=== PATIENT | female | born 1965 | race Caucasian/White ===

== ENCOUNTER → 2020-04-15 | Outpatient (CLI) | payer OTHER ==
[~2020-04-15] MED LIST: AMIT10TA PO; AMLO2.5T5 PO; AZAT50TA20 PO; CELE200C PO; CYCL1DRO OU; HYDR-2145 PO; INFL100V IV; METF500T16 PO; METO50TA29 PO; OMEG1CAP50 PO; OMEP20CA16 PO; PRAV20TA2 PO; SERT100T PO; TRAM50TA PO
== END | disposition home or self-care (01) ==
LOC: LAB 08:10
PROVIDERS: ATTEND Nurse Anesthetist, Certified Registered
DX: Z01.812 Encounter for preprocedural laboratory examination (principal); Z12.11 Encounter for screening for malignant neoplasm of colon; Z20.828 Contact with and (suspected) exposure to other viral communicable diseases
CPT/HCPCS: U0003-CS

== ENCOUNTER → 2020-04-18 | Day surgery (SDC) | payer OTHER ==
[~2020-04-18] MED LIST changes: +IPRATRPIUM/ALBUTEROL 0.5/2.5MG 3 ML NEBU. NEB PRN; +IV RINGERS SOLUTION,LACTATED 1,000 ML IV SCH; +MIDAZOLAM HCL PF 2 MG/2 ML VIAL. IV ONE; +ONDANSETRON PF 4 MG/2 ML VIAL. IV PRN; +PROPOFOL 10,000 MCG/ML (20ML) VIAL IV ONE
[2020-04-18 08:28] VITALS: BP 149/90
--- NOTE | 2020-04-19 15:08 | PATHOLOGY ---
[facility] Accession Number: [id number] . 01 Material submitted: . PART A: cecum - CECAL POLYP X3 PART B: colon - TRANSVERSE POLYP. Modifiers: transverse . 02 Diagnosis: A. Colon biopsies, cecal polyp x 3: - Segments of colonic mucosa focally containing mucosal-associated lymphoid aggregates, consistent with prominent mucosal folds. . B. Colon biopsies, transverse colon polyp: - Tubular adenoma. ([facility] 04/19/2020) [facility] 04/19/2020 1040 Local . 02 Comment: There is no high-grade dysplasia or evidence of malignancy. ([facility] 04/19/2020) . 02 Electronically signed: . Jose Sprague MD, Pathologist NPI- [id number] . 01 Gross description: . A. The specimen is received in formalin, labeled "Lakisha Andrew, cecum polyp". Received are two segments of pale daniel soft tissue ranging in size from 0.6 to 0.7 cm in maximum dimensions. The specimen is submitted entirely in cassette A1. . B. The specimen is received in formalin, labeled "Lakisha Andrew, transverse polyp". Received are four segments of pale daniel soft tissue ranging in size from 0.3 to 0.4 cm in maximum dimensions. The specimen is submitted entirely in cassette B1. ([facility]; 04/18/2020) [facility]AC 04/18/2020 1820 Local . 02 Pathologist provided ICD-10: D12.0 . 02 CPT . 337225, [id number] Specimen Comment: A courtesy copy of this report has been sent to [phone] Specimen Comment: [id number] Specimen Comment: Report sent to / DR FRANCISCO Performed at: 01 [facility] [address], [place], [place] [id number] MD Bhupendra Pantoja MD Phone: [phone] Performed at: 02 [facility] [address], [place] [id number] MD Jose Sprague MD Phone: [phone]
== END | disposition home or self-care (01) ==
LOC: SURG 06:32
PROVIDERS: ATTEND Internal Medicine Gastroenterology
DX: Z12.11 Encounter for screening for malignant neoplasm of colon (principal); D12.3 Benign neoplasm of transverse colon; K57.30 Diverticulosis of large intestine without perforation or abscess without bleeding; Z79.899 Other long term (current) drug therapy
CPT/HCPCS: 45380; 88305; J2704; J7120

== ENCOUNTER → 2021-01-24 | Outpatient (CLI) | payer OTHER ==
[2020-04-18 08:28] VITALS: BP 149/90
[~2021-01-24] MED LIST changes: -IPRATRPIUM/ALBUTEROL 0.5/2.5MG 3 ML NEBU. NEB PRN; -IV RINGERS SOLUTION,LACTATED 1,000 ML IV SCH; -MIDAZOLAM HCL PF 2 MG/2 ML VIAL. IV ONE; -ONDANSETRON PF 4 MG/2 ML VIAL. IV PRN; -PROPOFOL 10,000 MCG/ML (20ML) VIAL IV ONE
--- NOTE | 2021-01-24 12:02 | RAD ---
EXAM: Chest, 2 views. HISTORY: Inflammatory lung disease. COMPARISON: None. FINDINGS: 2 views of the chest are obtained. There is right infrahilar and basilar atelectasis or ple ural parenchymal scarring with a suspected trace pleural effusion or basilar pleural thickening. The heart is normal in size. There is no pneumothorax. IMPRESSION: Right infrahilar and basilar atelectasis or pleural parenchymal scarring with trace pleur al effusion or pleural thickening. Electronically signed by: Lashawn Gonzalez MD (01/24/2021 12:00 PM) [id number]
== END ==
LOC: RAD 11:31
PROVIDERS: ATTEND Family Medicine
DX: J98.4 Other disorders of lung (principal)
CPT/HCPCS: 71046

== ENCOUNTER 2021-08-04 11:18 | Inpatient (IN) | payer OTHER ==
[~2021-08-04] VITALS: Ht 166.4 cm; Wt 118.6 kg
--- NOTE | 2021-08-04 12:28 | PHYS DOC ---
Past History Additional Past Medical Histor: RA, DM, Lung disease (SCOT GATICA APRN) Past Surgical History: Other (SCOT GATICA APRN) General Adult EDM: Chief Complaint: SHORTNESS OF BREATH HPI: HPI: Patient is a 55-year-old female who presents to the emergency department today for a productive cough and shortness of breath that started yesterday. She also reports decreased appetite, headache and chest wall pain with coughing. Patient has a history of RA and interstitial lung disease. Patient reports that her daughter has been sick and had a negative COVID test. Patient denies any fevers, nausea, vomiting, travel. (SCOT GATICA APRN) Review of Systems: Review of Systems: Constitutional: See HPI Respiratory: See HPI Cardiovascular: See HPI GI: See HPI Neurologic: See HPI (SCOT GATICA APRN) Allergies: Allergies: Allergies Coded Allergies Type Severity Reaction Last Updated Verified No Known Drug Allergies 04/12/20 No (SCOT GATICA APRN) Physical Exam: PE: Constitutional: Well developed, well nourished, no acute distress, non-toxic appearance. [] HENT: Normocephalic, atraumatic, bilateral external ears normal, oropharynx moist, no oral exudates, nose normal. [] Eyes: PERRL, EOMI, conjunctiva normal, no discharge. [] Neck: Normal range of motion, there Cardiovascular:Heart rate regular rhythm, no murmur, chest wall pain reproducible with coughing [] Lungs & Thorax: Patient has diminished lung sounds on right lower lobe Abdomen: Bowel sounds normal, soft, no tenderness, no masses, no pulsatile masses. [] Skin: Warm, dry, no erythema, no rash. [] Back: Normal range of motion Extremities: No tenderness, no cyanosis, no clubbing, ROM intact, no edema. [] Neurologic: Alert and oriented X 3, normal motor function, normal sensory function, no focal deficits noted. [] Psychologic: Affect normal, judgement normal, mood normal. [] (SCOT GATICA APRN) Current Patient Data: Labs: Laboratory Tests Test 08/04/21 13:04 Influenza Type A (Rapid) Negative Influenza Type B (Rapid) Negative SARS-CoV-2 Antigen (Rapid) Positive Current Medications Medications (Trade) Dose Ordered Sig/Lana Route PRN Reason Start Time Stop Time Status Last Admin Dose Admin Sodium Chloride 1,000 ml @ 100 mls/hr Q10H IV 08/04/21 14:30 08/05/21 14:29 UNV Vital Signs: Vital Signs Date Time Temp Pulse Resp B/P (MAP) Pulse Ox O2 Delivery O2 Flow Rate FiO2 08/04/21 11:35 97.8 107 16 149/90 (109) 94 Room Air (SCOT GATICA APRN) EKG: EKG: [] (SCOT GATICA APRN) Radiology/Procedures: Radiology/Procedures: [] EXAM: Chest, single view. HISTORY: Cough. Shortness of air. COMPARISON: 01/24/2021 FINDINGS: A frontal view of the chest is obtained. There has been slight interval increase in a small right pleural effusion and right lower lobe infiltrate. This is superimposed on suspected basilar pleural thickening. There is stable left basilar atelectasis or infiltrate. The heart is normal in size. There is no pneumothorax. IMPRESSION: 1. Slight increased small right pleural effusion and right lower lobe infiltrate. Superimposed on suspected basilar pleural thickening/pleural parenchymal scarring. 2. Stable left basilar atelectasis or infiltrate. Electronically signed by: Lashawn Owen MD (08/04/2021 12:37 PM) [id number] DICTATED AND SIGNED BY: LASHAWN OWEN MD DATE: 08/04/21 1236 CC: ANNE FRANCISCO MD; SCOT GATICA APRN ~MTH0 0 (SCOT GATICA APRN) Heart Score: C/O Chest Pain: No Risk Factors: Risk Factors: DM, Current or recent (<one month) smoker, HTN, HLP, family history of CAD, obesity. Risk Scores: Score 0 - 3: 2.5% MACE over next 6 weeks - Discharge Home Score 4 - 6: 20.3% MACE over next 6 weeks - Admit for Clinical Observation Score 7 - 10: 72.7% MACE over next 6 weeks - Early Invasive Strategies (SCOT GATICA APRN) Course & Med Decision Making: Course & Med Decision Making Pertinent Labs and Imaging studies reviewed. (See chart for details) [] Patient presents to the emergency department for productive cough, shortness of breath, headache and decreased appetite. Patient will be tested for influenza and COVID. She will also receive a chest x-ray. Patient was positive for COVID-19, negative influenza test. Chest x-ray shows pneumonia. Patient is requiring supplemental oxygen at rest and with exertion. She will be admitted for COVID pneumonia and hypoxia. I discussed patient's case with Dr. Nielsen who agreed to admit the patient under his services. He advised order supplemental oxygen, gram of Rocephin, 500 mg of Zithromax, Decadron. Discussed these findings with patient as well as care plan she is agreeable at this time. ER bridge orders placed at this time 1423. (SCOT GATICA APRN) Dragon Disclaimer: Dragon Disclaimer: This electronic medical record was generated, in whole or in part, using a voice recognition dictation system. (SCOT GATICA APRN) Attending Co-Sign The patient was seen and interviewed as well as examined at the bedside. The chart was reviewed. The case was discussed. Agree with the plan of care. (JUAN MANUEL PORTER DO) Departure Departure: Impression: Primary Impression: Pneumonia due to COVID-19 virus Additional Impression: Hypoxia Disposition: ADMITTED INPATIENT Admitting Physician: Surya Nielsen (SCOT GATICA APRN) Condition: GOOD Referrals: ANNE FRANCISCO MD (PCP) SCOT GATICA APRN Aug 04, 2021 12:28 JUAN MANUEL PORTER DO Aug 05, 2021 06:38
--- NOTE | 2021-08-04 12:39 | RAD ---
EXAM: Chest, single view. HISTORY: Cough. Shortness of air. COMPARISON: 01/24/2021 FINDINGS: A frontal view of the chest is obtained. There has been slight interval increase in a small right pleural effusion and right lower lobe infiltrate. This is superimposed on suspected basilar pl eural thickening. There is stable left basilar atelectasis or infiltrate. The heart is normal in size . There is no pneumothorax. IMPRESSION: 1. Slight increased small right pleural effusion and right lower lobe infiltrate. Superimposed on anil pected basilar pleural thickening/pleural parenchymal scarring. 2. Stable left basilar atelectasis or infiltrate. Electronically signed by: Lashawn Gonzalez MD (08/04/2021 12:37 PM) [id number]
[2021-08-04 13:37] LABS: INFLUENZA A PATIENT NEGATIVE (NEGATIVE); INFLUENZA B PATIENT NEGATIVE (NEGATIVE)
[2021-08-04] MEDS ORDERED: DEXAMETHASONE SOD PHOS 10 MG/ML VIAL. IVP ONE (14:30)
[2021-08-04] MEDS ORDERED: AZITHROMYCIN 500 MG in IV NORMAL SALINE 250ML 250 ML IV ONE (14:30)
[2021-08-04] MEDS ORDERED: AZITHROMYCIN 500 MG in IV NORMAL SALINE 250ML 250 ML IV SCH (15:00)
[2021-08-04] MEDS ORDERED: IV NORMAL SALINE 50ML 50 ML ONE (15:13)
[2021-08-04] MEDS ORDERED: cefTRIAXone SODIUM 1 GM VIAL ONE (15:13)
[2021-08-04] MEDS: IV NORMAL SALINE 1,000ML 1,000 ML IV SCH (15:28)
[2021-08-04] MEDS ORDERED: IV NORMAL SALINE 250ML 250 ML ONE (16:49)
[2021-08-04] MEDS ORDERED: AZITHROMYCIN 500 MG VIAL. IV ONE (16:49)
[2021-08-04 19:00] VITALS: BP 133/83
[2021-08-04 23:00] VITALS: BP 113/73
[2021-08-05] MEDS: IV NORMAL SALINE 1,000ML 1,000 ML IV SCH (00:30)
[2021-08-05 05:55] VITALS: BP 135/85
[2021-08-05 06:12] LABS: BASO % 0 % (0-3); EOS % 0 % (0-3); HEMATOCRIT 31.4 % (36.0-47.0); HEMOGLOBIN 9.9 g/dL (12.0-15.5); LYMPH # 0.4 x10^3/uL (1.0-4.8); LYMPH % 3 % (24-48); MEAN CORPUSCULAR HEMOGLOBIN 28 pg (25-35); MEAN CORPUSCULAR HGB CONC 32 g/dL (31-37); MEAN CORPUSCULAR VOLUME 89 fL (79-100); MONO # 0.5 x10^3/uL (0.0-1.1); MONO % 3 % (0-9); NEUT # 12.4 x10^3uL (1.8-7.7); NEUT % 93 % (31-73); PLATELET COUNT 382 x10^3/uL (140-400); RED BLOOD COUNT 3.54 x10^6/uL (3.50-5.40); RED CELL DISTRIBUTION WIDTH 17.3 % (11.5-14.5); WHITE BLOOD COUNT 13.3 x10^3/uL (4.0-11.0)
[2021-08-05 06:27] LABS: ALBUMIN/GLOBULIN RATIO 0.7 (1.0-1.7); CREATININE 0.8 mg/dL (0.6-1.0); GFR 73.9; POTASSIUM 4.1 mmol/L (3.5-5.1); TOTAL BILIRUBIN 0.3 mg/dL (0.2-1.0); TOTAL PROTEIN 7.3 g/dL (6.4-8.2)
--- NOTE | 2021-08-05 09:57 | HP ---
DATE OF SERVICE: 08/05/2021 ADMIT DATE: 08/04/2021 ADMISSION HISTORY AND PHYSICAL ATTENDING PHYSICIAN: Dr. Nielsen. CHIEF COMPLAINT: Shortness of breath. HISTORY OF PRESENT ILLNESS: The patient is a 55-year-old female admitted through the ED with increasing shortness of breath for the last 2 days. She has been fully vaccinated with the booster. She tested positive for coronavirus, most likely it is the Omicron variant. 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 She was given ceftriaxone and azithromycin with marked improvement. She was admitted then for further treatment and evaluation. She required several liters of oxygen to maintain sats. We are in the process of weaning her down. PAST MEDICAL HISTORY: Significant for rheumatoid arthritis and rheumatoid lung. She sees Dr. Yeni Back, the supervisor putty and caluking. CURRENT MEDICINES: Include the following: Amitriptyline, amlodipine, Imuran, Celebrex, cyclosporin eyedrops, hydrochlorothiazide, Remicade, metformin, metoprolol, omega 3, fish oil, omeprazole, pravastatin, Zoloft, and tramadol. ALLERGIES: She has no recorded drug allergies. SOCIAL HISTORY: She is a nonsmoker and nondrinker. FAMILY HISTORY: Her mother at the young age at age 36 with complicated kidney disease. Father's health is unknown. She is and lives with her . She has 2 grown children and 1 granddaughter. REVIEW OF SYSTEMS: Significant for some weight gain due to her medications. She also has dry mouth. Her rheumatoid has been under control. She has had previous thoracentesis for the chronic pleural effusion on the left side. All other systems reviewed and turned to be negative. Once again, she has been fully vaccinated. PHYSICAL EXAMINATION: GENERAL: When I saw her, this is a pleasant, middle-aged female. VITAL SIGNS: Her initial vital signs showed a blood pressure of 113/73, pulse is 67 and regular. She was afebrile, oxygen saturation 94% on 2 liters. HEENT: Head is without trauma. Pupils are reactive. Sclerae nonicteric. Oropharynx is clear. NECK: Supple, no bruits. LUNGS: Diminished breath sounds at the left base. CARDIOVASCULAR: Showed regular heart tones. No gallops or murmurs. Peripheral pulses are palpable and full. ABDOMEN: Obese, protuberant. No organomegaly. Bowel sounds are hypoactive. EXTREMITIES: Show trace edema. NEUROLOGIC: Focally intact. SKIN: Warm and dry. SPEECH: Fluent. PERTINENT LABORATORY STUDIES: At admission, her hemoglobin was 9.9 g/dL with a white count 13,300. Electrolytes within normal range. Nonfasting blood sugar 129 mg/dL. Serology indeed positive for the coronavirus. Chest x-ray on admission showed small right pleural effusion and right lower lobe infiltrate, superimposed and suspecting basilar pleural thickening and parenchymal scarring. She has stable left basilar atelectasis. ASSESSMENT: 1. A 55-year-old female with coronavirus, pneumonia probably the Omicron variant. 2. Chronic lung disease due to rheumatoid arthritis. 3. Anemia due to rheumatoid arthritis. 4. Mild hypoxemia requiring supplemental oxygen. PLAN: 1. Admit to the inpatient unit. 2. Empiric antibiotics. 3. Empiric steroids. 4. Wean down oxygen demands. 5. She is feeling better. I suspect that she would be ready to go home tomorrow with oral antibiotics. TIFFANY/LESLIE/TAWANDA DR: Nilson TID: [id number] CC: ANNE FRANCISCO MD
[2021-08-05] MEDS ORDERED: FOLI20CA PO (10:54)
[2021-08-05] MEDS ORDERED: TOFA5TAB PO (10:54)
[2021-08-05] MEDS ORDERED: LOSA100T14 PO (10:54)
[2021-08-05] MEDS ORDERED: traMADol 50 MG TABLET PO PRN (11:00)
[2021-08-05 11:20] VITALS: BP 126/73
[2021-08-05] MEDS ORDERED: azaTHIOprine 50 MG TABLET PO SCH (11:30)
[2021-08-05] MEDS ORDERED: AZITHROMYCIN 500 MG in IV NORMAL SALINE 250ML 250 ML IV SCH (15:00)
[2021-08-05 15:52] VITALS: BP 116/77
[2021-08-05] MEDS: metFORMIN 500 MG TABLET PO SCH (16:14)
[2021-08-05] MEDS: LACTOBACILLUS RHAMNOSUS GG 1 CAPSULE. PO SCH (20:13)
[2021-08-05] MEDS: CELECOXIB 100 MG CAPSULE PO SCH (20:13)
[2021-08-05 20:24] VITALS: BP 112/74
[2021-08-05 23:58] VITALS: BP 103/70
[2021-08-06 06:14] VITALS: BP 115/80
[2021-08-06] MEDS ORDERED: PANTOPRAZOLE 40 MG TABLET. PO SCH (07:30)
[2021-08-06] MEDS: metFORMIN 500 MG TABLET PO SCH (08:03)
[2021-08-06] MEDS: LACTOBACILLUS RHAMNOSUS GG 1 CAPSULE. PO SCH (08:03)
[2021-08-06] MEDS: CELECOXIB 100 MG CAPSULE PO SCH (08:04)
[2021-08-06] MEDS ORDERED: ATORVASTATIN CALCIUM 10 MG TABLET. PO SCH (09:00)
[2021-08-06] MEDS ORDERED: SERTRALINE 100 MG TABLET. PO SCH (09:00)
[2021-08-06] MEDS ORDERED: azaTHIOprine 50 MG TABLET PO SCH (09:00)
[2021-08-06] MEDS ORDERED: METOPROLOL SUCC 24HR ER 50 MG TAB.ER.24H. PO SCH (09:00)
[2021-08-06] MEDS ORDERED: cycloSPORINE 0.05% OPTH 1 DROP DROPERETTE OU SCH (09:00)
[2021-08-06] MEDS ORDERED: FOLIC ACID 1 MG TABLET PO SCH (09:00)
[2021-08-06] MEDS ORDERED: LOSARTAN 50 MG TABLET. PO SCH (09:00)
[2021-08-06 10:32] LABS: BASO % 0 % (0-3); EOS # 0.1 x10^3/uL (0.0-0.7); EOS % 1 % (0-3); HEMATOCRIT 31.6 % (36.0-47.0); HEMOGLOBIN 10.2 g/dL (12.0-15.5); LYMPH % 20 % (24-48); MEAN CORPUSCULAR HEMOGLOBIN 29 pg (25-35); MEAN CORPUSCULAR HGB CONC 32 g/dL (31-37); MEAN CORPUSCULAR VOLUME 89 fL (79-100); MONO # 0.6 x10^3/uL (0.0-1.1); MONO % 6 % (0-9); NEUT # 7.3 x10^3uL (1.8-7.7); NEUT % 73 % (31-73); PLATELET COUNT 440 x10^3/uL (140-400); RED BLOOD COUNT 3.55 x10^6/uL (3.50-5.40); RED CELL DISTRIBUTION WIDTH 17.7 % (11.5-14.5); WHITE BLOOD COUNT 10.1 x10^3/uL (4.0-11.0)
[2021-08-06 10:40] VITALS: BP 135/85
[2021-08-06 10:42] LABS: ALBUMIN 2.9 g/dL (3.4-5.0); ALBUMIN/GLOBULIN RATIO 0.7 (1.0-1.7); CALCIUM 8.2 mg/dL (8.5-10.1); CREATININE 0.8 mg/dL (0.6-1.0); GFR 73.9; TOTAL BILIRUBIN 0.2 mg/dL (0.2-1.0); TOTAL PROTEIN 7.2 g/dL (6.4-8.2)
[2021-08-06 14:40] VITALS: BP 110/73
[2021-08-06] MEDS ORDERED: AZITHROMYCIN 250 MG TABLET. PO SCH (15:00)
[2021-08-06] MEDS ORDERED: AZIT250T PO (16:07)
[2021-08-06] MEDS ORDERED: ASCO500C9 PO (16:07)
[2021-08-06] MEDS ORDERED: CEFD300C PO (16:07)
[2021-08-06] MEDS ORDERED: DEXA6TAB6 PO (16:07)
[2021-08-06] MEDS ORDERED: DEXAMETHASONE 4 MG TABLET PO SCH (16:30)
--- NOTE | 2021-08-06 19:20 | DS ---
DATE OF DISCHARGE: 08/06/2021 HOSPITAL COURSE: The patient is a 55-year-old female patient, who was actually seen in the Emergency Room on 08/04, and had spent almost 24 hours there. Eventually, she made it to the hospital yesterday. She was diagnosed with COVID-19 pneumonia and acute hypoxic respiratory failure. She actually did very well. She was treated with IV antibiotic in the form of Zithromax and ceftriaxone and initially her oxygen requirement was 2 liters; however, over the last 48 hours, she did not require any oxygen on room and was on room air, maintaining her oxygen saturation up to 95%. We did actually a 6-minute walk and her oxygen saturation dropped down to 88% on exertion and given that she is doing very well and feeling much better, a decision was made to discharge her home to continue with oral antibiotic, dexamethasone, zinc sulfate and ascorbic acid, together with oxygen supplementation at 2 liters of oxygen on exertion. PHYSICAL EXAMINATION: GENERAL: When I examined her this afternoon, she looked well and was clearly in no apparent respiratory distress, pale, but not jaundiced or cyanosed. No lymphadenopathy, no thyromegaly, no jugular venous distention. No limb edema. VITAL SIGNS: Her heart rate was 81, blood pressure was 110/73, temperature was 97.5, respiratory rate was 16 and oxygen saturation was 95% on room air at rest. HEAD, EYES, EARS, NOSE, AND THROAT: Normocephalic, atraumatic. NECK: Supple. HEART: Showed normal first and second heart sounds. No gallop, rub or murmur. CHEST: Shows central trachea, equal bilateral expansion, air entry, vesicular breath sounds with crepitation, mostly on the right side posteriorly. I could not appreciate any rhonchi. ABDOMEN: Distended, soft, nontender. NEUROLOGIC: She is grossly intact. Her intake was 960. No output was recorded. LABORATORY DATA: Her lab work This morning showed a white cell count of 10,000, hemoglobin 10, hematocrit 32, MCV 89, platelet count of 440,000 with normal manual differential. Her chemistry showed a serum sodium of 137, potassium 4, chloride 98, bicarbonate 26, anion gap of 13, BUN 20, creatinine 0.8. Estimated GFR was 74 mL per minute. Her glucose 129, calcium was 8.2. Total bilirubin, AST, ALT, alkaline phosphatase were normal. DISCHARGE MEDICATIONS: The patient was discharged home to continue on ascorbic acid 500 mg once a day, azithromycin 250 mg once a day for 4 more days, cefdinir 300 mg twice a day for 8 days and dexamethasone 6 mg orally for 10 days. Should continue on all her other medication including amitriptyline 10 mg at bedtime, azathioprine or Imuran 50 mg, she takes two tablets daily, Celebrex 200 mg twice a day, cyclosporine, Restasis 1 drop to both eyes daily, folic acid 2 mg daily, hydrochlorothiazide 25 mg once a day, losartan potassium 50 mg daily, metformin 500 mg p.o. b.i.d., metoprolol succinate 50 mg once a day, omega-3 fatty acids 1 capsule daily, omeprazole 20 mg once a day, pravastatin 20 mg daily, tofacitinib citrate or Xeljanz 5 mg twice a day and tramadol 50 mg 4 times a day. FINAL DISCHARGE DIAGNOSES: 1. COVID-19 pneumonia. 2. Acute hypoxic respiratory failure. 3. Rheumatoid arthritis and rheumatoid lung. 4. Type 2 diabetes mellitus. 5. Hypertension. 6. Hyperlipidemia. MARIA LUISA DR: Ronal TID: [id number]
== END 2021-08-06 17:51 | disposition home or self-care (01) | DRG 177 ==
LOC: ER 11:18 → ER HOLD 14:18 → 1 SOUTH 17:24
PROVIDERS: ADMIT Hospitalist; ATTEND Hospitalist
DX: U07.1 COVID-19 (principal); J12.82 Pneumonia due to coronavirus disease 2019; J96.01 Acute respiratory failure with hypoxia; J90 Pleural effusion, not elsewhere classified; J98.11 Atelectasis; D64.9 Anemia, unspecified; E11.9 Type 2 diabetes mellitus without complications; E78.5 Hyperlipidemia, unspecified; I10 Essential (primary) hypertension
CPT/HCPCS: 36415; 71045; 80053; 85025; 96365; 96367; 96375; J0456; J0696; J1100; J7050; J7500; J8540; 99285-25; J7030